=== PATIENT | male | born 1975 | race Caucasian/White ===

== ENCOUNTER 2018-05-10 12:07 | Emergency (ER) | payer OTHER ==
[~2018-05-10] VITALS: Ht 190.5 cm; Wt 118.7 kg
[2018-05-10 12:49] VITALS: BP 106/74
[2018-05-10] MEDS ORDERED: APIXABAN 5 MG TABLET PO ONE (13:04)
[2018-05-10] MEDS ORDERED: APIXABAN 5 MG TABLET ONE (13:12)
[2018-05-10] MEDS ORDERED: PROPOFOL 10 MG/ML, 20ML ONE (13:14)
[2018-05-10] MEDS ORDERED: PROPOFOL 10 MG/ML, 20ML IVPush ONE (13:30)
== END 2018-05-10 15:18 | disposition home or self-care (01) ==
LOC: ED 14:55
DX: I48.0 Paroxysmal atrial fibrillation (principal)
CPT/HCPCS: 92960; 93005; 99152

== ENCOUNTER 2018-07-26 19:15 | Emergency (ER) | payer OTHER ==
[~2018-07-26] VITALS: Ht 190.5 cm; Wt 120.0 kg
[2018-07-26 19:56] LABS: BASOPHILS # (AUTO) 0.04 x10^3/uL (0-0.1); BASOPHILS % (AUTO) 1 % (0-1); EOSINOPHILS # (AUTO) 0.14 x10^3/uL (0-0.4); EOSINOPHILS % (AUTO) 2 % (1-7); LYMPHOCYTES # (AUTO) 3.93 x10^3/uL (1-3.4); LYMPHOCYTES % (AUTO) 47 % (22-44); MD NO; MEAN CORPUSCULAR HEMOGLOBIN 30.1 pg (27.5-34.5); MEAN CORPUSCULAR HGB CONC 34.6 g/dL (33.2-36.2); MEAN CORPUSCULAR VOLUME 87.1 fL (81-97); MEAN PLATELET VOLUME 7.4 fL (7.4-10.4); MONOCYTES # (AUTO) 0.75 x10^3/uL (0.2-0.8); MONOCYTES % (AUTO) 9 % (2-9); NEUTROPHILS # (AUTO) 3.56 x10^3/uL (1.8-6.8); NEUTROPHILS % (AUTO) 42 % (42-75); PLATELET COUNT 270 x10^3/uL (130-400); RED BLOOD COUNT 5.93 x10^6/uL (4.38-5.82); RED CELL DISTRIBUTION WIDTH 14.1 % (9.4-14.8)
[2018-07-26] MEDS ORDERED: OMEP-110 PO (19:57)
[2018-07-26] MEDS ORDERED: ANDROGEL (19:57)
[2018-07-26] MEDS ORDERED: METO25TA35 PO (19:57)
[2018-07-26] MEDS ORDERED: CELE200C PO (19:57)
[2018-07-26] MEDS ORDERED: APIX5TAB PO (19:57)
[2018-07-26] MEDS ORDERED: AMITRIPTYLINE (19:57)
[2018-07-26] MEDS ORDERED: OXYC-295 PO (19:57)
[2018-07-26 20:06] LABS: INTERNATIONAL NORMALIZED RATIO 0.96 (0.93-1.1); PROTHROMBIN TIME 9.9 Seconds (9.6-11.5)
[2018-07-26 20:09] LABS: ANION GAP 5 mmol/L (5-15); CALCIUM 8.9 mg/dL (8.5-10.1); CHLORIDE 109 mmol/L (98-107)
[2018-07-26 20:14] LABS: TROPONIN I < 0.015 ng/mL (0.000-0.045)
[2018-07-26] MEDS ORDERED: ETOMIDATE 20 MG/10 ML ONE (20:37)
[2018-07-26] MEDS ORDERED: FENTANYL PF 100 MCG/2ML ONE (20:37)
[2018-07-26] MEDS ORDERED: ETOMIDATE 40 MG/20 ML IVPush ONE (21:00)
[2018-07-26] MEDS ORDERED: FENTANYL PF 100 MCG/2ML IVPush ONE ×2 (21:00)
[2018-07-26 21:55] VITALS: BP 125/87
== END 2018-07-26 22:14 ==
LOC: ED 20:20
DX: I48.0 Paroxysmal atrial fibrillation (principal)
CPT/HCPCS: 36415; 71045; 80048; 82040; 84484; 85025; 85610; 85730; 92960; 93005; 99285; J3010

== ENCOUNTER 2018-07-30 12:17 | Day surgery (SDC) | payer OTHER ==
[~2018-07-30] VITALS: Ht 190.5 cm; Wt 120.5 kg
[~2018-07-30 12:17] MED LIST: AMITRIPTYLINE; ANDROGEL; APIX5TAB PO; CELE200C PO; METO25TA35 PO; OMEP-110 PO; OXYC-295 PO
[2018-07-30 12:42] VITALS: BP 128/80
[2018-07-30] MEDS ORDERED: PROPOFOL 10 MG/ML, 20ML ONE (12:56)
[2018-07-30] MEDS ORDERED: SODIUM CHLORIDE FLUSH 10ML SYR IVF SCH (21:00)
== END 2018-07-30 14:48 | disposition home or self-care (01) ==
LOC: CACL 12:17
PROVIDERS: ATTEND Internal Medicine Cardiovascular Disease
DX: I48.0 Paroxysmal atrial fibrillation (principal); K21.9 Gastro-esophageal reflux disease without esophagitis; I10 Essential (primary) hypertension; G47.33 Obstructive sleep apnea (adult) (pediatric); Z79.82 Long term (current) use of aspirin
CPT/HCPCS: 92960; 93005; J2704

== ENCOUNTER → 2018-08-09 | Outpatient (CLI) | payer OTHER | END | disposition home or self-care (01) | LOC: CVU 10:26 | PROVIDERS: ATTEND Internal Medicine Cardiovascular Disease | DX: I48.0 Paroxysmal atrial fibrillation (principal); I10 Essential (primary) hypertension; Z87.890 Personal history of sex reassignment | CPT/HCPCS: 93306 ==

== ENCOUNTER 2020-11-22 23:16 | Emergency (ER) | payer OTHER ==
[~2020-11-22] VITALS: Ht 190.5 cm; Wt 124.0 kg
[2020-11-23] LABS: BASOPHILS % (AUTO) 1 % (0-1); EOSINOPHILS % (AUTO) 1 % (1-7); LYMPHOCYTES % (AUTO) 44 % (22-44); MEAN CORPUSCULAR HEMOGLOBIN 29.4 pg (27.5-34.5); MEAN CORPUSCULAR HGB CONC 34.4 g/dL (33.2-36.2); MEAN PLATELET VOLUME 7.3 fL (7.4-10.4); MONOCYTES % (AUTO) 9 % (2-9); NEUTROPHILS % (AUTO) 45 % (42-75); PLATELET COUNT 266 x10^3/uL (130-400); RED BLOOD COUNT 5.84 x10^6/uL (4.38-5.82); RED CELL DISTRIBUTION WIDTH 14.5 % (9.4-14.8)
[2020-11-23 00:01] LABS: MD NO
[2020-11-23 00:11] LABS: ANION GAP 3 mmol/L (5-15); CALCIUM 9.1 mg/dL (8.5-10.1); CHLORIDE 105 mmol/L (98-107); CREATININE 1.23 mg/dL (0.7-1.3)
[2020-11-23 00:15] LABS: TROPONIN I < 0.015 ng/mL (0.000-0.045)
[2020-11-23] MEDS ORDERED: PROPOFOL 10 MG/ML, 20ML ONE (00:26)
[2020-11-23] MEDS ORDERED: PROPOFOL 10 MG/ML, 20ML IVPush ONE (00:30)
[2020-11-23 00:50] VITALS: BP 106/79
[2020-11-23] MEDS ORDERED: RIVAROXABAN 20 MG TABLET ONE (00:54)
[2020-11-23] MEDS ORDERED: RIVAROXABAN 20 MG TABLET PO ONE (01:00)
== END 2020-11-23 01:04 | disposition home or self-care (01) ==
LOC: ED 11-23 00:30
DX: I48.0 Paroxysmal atrial fibrillation (principal); R06.02 Shortness of breath; R00.2 Palpitations; R42 Dizziness and giddiness; R07.89 Other chest pain
CPT/HCPCS: 36415; 71045; 80048; 82040; 83735; 84484; 85025; 93005; 99285

== ENCOUNTER 2020-11-29 06:52 | Day surgery (SDC) | payer OTHER ==
[~2020-11-29] VITALS: Ht 190.5 cm; Wt 121.0 kg
[2020-11-29] MEDS ORDERED: SODIUM CHLORIDE 0.9% 1,000 ML IV ONE (07:30)
[2020-11-29] MEDS ORDERED: NALOXONE 0.4 MG/ML, 1ML IVPush PRN ×2 (07:30)
[2020-11-29] MEDS ORDERED: RIVA20TA PO (07:45)
[2020-11-29 07:46] VITALS: BP 107/76
[2020-11-29 07:59] LABS: ANION GAP 6 mmol/L (5-15); CALCIUM 8.8 mg/dL (8.5-10.1); CHLORIDE 110 mmol/L (98-107); CREATININE 1.08 mg/dL (0.7-1.3)
[2020-11-29] MEDS ORDERED: SODIUM CHLORIDE FLUSH 10ML SYR IVF SCH (09:00)
[2020-11-29] MEDS ORDERED: PROPOFOL 10 MG/ML, 50ML ONE (09:07)
== END 2020-11-29 10:28 | disposition home or self-care (01) ==
LOC: CACL 06:52
PROVIDERS: ATTEND Internal Medicine Cardiovascular Disease
DX: I48.0 Paroxysmal atrial fibrillation (principal); I34.0 Nonrheumatic mitral (valve) insufficiency; I10 Essential (primary) hypertension; Z20.828 Contact with and (suspected) exposure to other viral communicable diseases; Z79.01 Long term (current) use of anticoagulants; Z79.899 Other long term (current) drug therapy
CPT/HCPCS: 36415; 80048; 87635; 92960; 93005; 93312; 93321; 93325; J2704

== ENCOUNTER 2020-12-27 07:51 | Emergency (ER) | payer OTHER ==
[~2020-12-27] VITALS: Ht 190.5 cm; Wt 127.3 kg
[~2020-12-27 07:51] MED LIST changes: +RIVA20TA PO
--- NOTE | 2020-12-27 08:10 | NUR ---
PT HAS CO CP AND PALPIATIONS AND SOB. RECENT AFIB W CARDIVERSION. PT DENIES N/V OR RESP SYMPTOMS. PAIN CENTER OF CHEST, DOES NOT RADIATE. SYMPTOMS STARTED THIS AM. MD LOPEZ AT BEDSIDE. MATCH MARKER IN PLACE
[2020-12-27] MEDS ORDERED: ASPIRIN 81 MG TABLET CHEW ONE (08:15)
[2020-12-27] MEDS ORDERED: NITROGLYCERIN SINGLE TAB 0.4 MG SL ONE (08:15)
[2020-12-27] MEDS ORDERED: ASPIRIN 81 MG TABLET CHEW PO ONE (08:30)
[2020-12-27] MEDS ORDERED: NITROGLYCERIN SINGLE TAB 0.4 MG SL PRN (08:30)
[2020-12-27] MEDS ORDERED: SODIUM CHLORIDE FLUSH 10ML SYR IVF ONE (08:30)
[2020-12-27 08:54] LABS: BASOPHILS % (AUTO) 1 % (0-1); EOSINOPHILS % (AUTO) 1 % (1-7); LYMPHOCYTES % (AUTO) 29 % (22-44); MEAN CORPUSCULAR HEMOGLOBIN 28.4 pg (27.5-34.5); MEAN CORPUSCULAR HGB CONC 33.7 g/dL (33.2-36.2); MEAN PLATELET VOLUME 7.1 fL (7.4-10.4); MONOCYTES % (AUTO) 9 % (2-9); NEUTROPHILS % (AUTO) 60 % (42-75); PLATELET COUNT 242 x10^3/uL (130-400); RED BLOOD COUNT 5.85 x10^6/uL (4.38-5.82); RED CELL DISTRIBUTION WIDTH 14.7 % (9.4-14.8)
[2020-12-27 08:59] LABS: MD NO
[2020-12-27 09:05] LABS: ALANINE AMINOTRANSFERASE 142 U/L (12-78); ALBUMIN 3.9 g/dL (3.4-5.0); CALCIUM 8.7 mg/dL (8.5-10.1); CREATININE 0.94 mg/dL (0.7-1.3); INTERNATIONAL NORMALIZED RATIO 1.03 (0.93-1.1)
[2020-12-27 09:10] LABS: ALKALINE PHOSPHATASE 42 U/L (45-117); BILIRUBIN,TOTAL 0.3 mg/dL (0.2-1.0); TOTAL PROTEIN 7.2 g/dL (6.4-8.2); TROPONIN I < 0.015 ng/mL (0.000-0.045)
[2020-12-27 09:24] LABS: ANION GAP 4 mmol/L (5-15); CHLORIDE 108 mmol/L (98-107)
--- NOTE | 2020-12-27 09:55 | NUR ---
PT RESTING, STATES CHEST PAIN IS PRESENT BUT DECREASED. SOB IS BETTER. VSS
[2020-12-27] MEDS ORDERED: MAALOX/HYOSCYAMINE/LIDOCAINE 45 ML BTL PO ONE (10:00)
[2020-12-27] MEDS ORDERED: MAALOX/HYOSCYAMINE/LIDOCAINE 45 ML BTL ONE (10:03)
[2020-12-27 10:47] LABS: TROPONIN I < 0.015 ng/mL (0.000-0.045)
--- NOTE | 2020-12-27 11:42 | NUR ---
Patient/Caregiver given discharge instructions and they have confirmed that they understand the instructions. Patient ambulatory with steady gait.
--- NOTE | 2020-12-27 11:42 | NUR ---
Patient/Caregiver given discharge instructions and they have confirmed that they understand the instructions. Patient ambulatory with steady gait.
[2020-12-27 11:45] VITALS: BP 145/88
== END 2020-12-27 11:46 | disposition home or self-care (01) ==
LOC: ED 08:54
DX: R07.89 Other chest pain (principal); R06.02 Shortness of breath; I48.91 Unspecified atrial fibrillation
CPT/HCPCS: 36415; 71045; 80053; 83880; 84484; 85025; 85610; 85730; 93005; 99285

== ENCOUNTER 2021-01-07 19:06 | Emergency (ER) | payer OTHER ==
[~2021-01-07] VITALS: Ht 198.1 cm; Wt 126.6 kg
--- NOTE | 2021-01-07 19:40 | NUR ---
Rate controlled at triage, a fib 80. Takes xarelto and metoprolol took extra metoprolol when device at home alerted him he was in a fib. Was cardioverted last week successfully. Has f/u with cards next week. Takes xarelto but has missed x2 doses in past few days. No cp, no sob.
--- NOTE | 2021-01-07 20:31 | NUR ---
PT RESTING COMFORTABLY. SO AT BEDSIDE. EDP IN .
[2021-01-07 20:54] LABS: BASOPHILS % (AUTO) 1 % (0-1); EOSINOPHILS % (AUTO) 2 % (1-7); LYMPHOCYTES % (AUTO) 46 % (22-44); MEAN CORPUSCULAR HEMOGLOBIN 28.8 pg (27.5-34.5); MEAN CORPUSCULAR HGB CONC 34.6 g/dL (33.2-36.2); MEAN PLATELET VOLUME 7.2 fL (7.4-10.4); MONOCYTES % (AUTO) 9 % (2-9); NEUTROPHILS % (AUTO) 43 % (42-75); PLATELET COUNT 244 x10^3/uL (130-400); RED BLOOD COUNT 5.76 x10^6/uL (4.38-5.82); RED CELL DISTRIBUTION WIDTH 14.5 % (9.4-14.8)
--- NOTE | 2021-01-07 20:54 | NUR ---
BEDSIDE RPT TO LAURA ALVES.
[2021-01-07] MEDS ORDERED: SODIUM CHLORIDE FLUSH 10ML SYR IVF ONE (21:00)
--- NOTE | 2021-01-07 21:00 | NUR ---
PT RESTING IN BED, AT BEDSIDE, NO COMPLAINTS AT THIS TIME, VSS
[2021-01-07 21:01] VITALS: BP 115/72
[2021-01-07 21:03] LABS: ALBUMIN 3.8 g/dL (3.4-5.0); ANION GAP 7 mmol/L (5-15); CALCIUM 8.5 mg/dL (8.5-10.1); CHLORIDE 111 mmol/L (98-107); CREATININE 0.92 mg/dL (0.7-1.3)
[2021-01-07 21:07] LABS: MD NO
== END 2021-01-07 21:48 | disposition home or self-care (01) ==
LOC: ED 21:00
DX: I48.0 Paroxysmal atrial fibrillation (principal); R00.2 Palpitations; Z72.9 Problem related to lifestyle, unspecified
CPT/HCPCS: 36415; 71045; 80048; 82040; 83735; 83880; 85025; 93005; 99285

== ENCOUNTER 2021-04-18 10:29 | Emergency (ER) | payer OTHER ==
[~2021-04-18] VITALS: Ht 190.5 cm; Wt 118.9 kg
[2021-04-18] MEDS ORDERED: SODIUM CHLORIDE FLUSH 10ML SYR IVF ONE (11:00)
[2021-04-18 11:09] VITALS: BP 119/85
[2021-04-18] MEDS ORDERED: PROPOFOL 10 MG/ML, 20ML ONE (11:11)
[2021-04-18] MEDS ORDERED: ADENOSINE 6 MG/2 ML ONE (11:12)
[2021-04-18 11:26] LABS: BASOPHILS % (AUTO) 1 % (0-1); EOSINOPHILS % (AUTO) 1 % (1-7); LYMPHOCYTES % (AUTO) 41 % (22-44); MEAN CORPUSCULAR HGB CONC 34.5 g/dL (33.2-36.2); MEAN PLATELET VOLUME 7.8 fL (7.4-10.4); MONOCYTES % (AUTO) 11 % (2-9); NEUTROPHILS % (AUTO) 47 % (42-75); PLATELET COUNT 251 x10^3/uL (130-400); RED BLOOD COUNT 6.74 x10^6/uL (4.38-5.82); RED CELL DISTRIBUTION WIDTH 14.3 % (9.4-14.8)
[2021-04-18 11:35] LABS: ANION GAP 5 mmol/L (5-15); CALCIUM 9.2 mg/dL (8.5-10.1); CHLORIDE 109 mmol/L (98-107); CREATININE 0.91 mg/dL (0.7-1.3); T4 (THYROXINE) 6.6 mcg/dL (4.5-12.1)
--- NOTE | 2021-04-18 11:35 | NUR ---
SYNCHRONIZED ELECTRICAL CARDIOVERSION WITH SEDATION STARTING AT 1127. PT CURRENTLY RECOVERING. PLEASE SEE PACKET FOR VS.
[2021-04-18 11:39] LABS: TROPONIN I < 0.015 ng/mL (0.000-0.045)
[2021-04-18 11:48] LABS: MD NO
== END 2021-04-18 13:09 | disposition home or self-care (01) ==
LOC: ED 12:00
DX: I48.0 Paroxysmal atrial fibrillation (principal); R07.89 Other chest pain; R94.31 Abnormal electrocardiogram [ECG] [EKG]
CPT/HCPCS: 36415; 71045; 80048; 82040; 83880; 84436; 84443; 84484; 85025; 92960; 93005; 99285

== ENCOUNTER 2021-04-19 19:24 | Emergency (ER) | payer OTHER ==
[~2021-04-19] VITALS: Ht 190.5 cm; Wt 119.0 kg
[2021-04-19 19:36] VITALS: BP 130/88
[2021-04-19 20:00] LABS: MICROSCOPIC AUTO
[2021-04-19] MEDS ORDERED: KETOROLAC 30 MG/1 ML ONE (23:24)
[2021-04-19] MEDS ORDERED: HYDROmorphone 1 MG/ML, 1ML INJ ONE (23:24)
[2021-04-19] MEDS ORDERED: METHOCARBAMOL 750 MG TABLET ONE (23:24)
[2021-04-19] MEDS ORDERED: HYDROmorphone 2 MG/ML, 1ML IVPush PRN (23:30)
[2021-04-19] MEDS ORDERED: KETOROLAC 30 MG/1 ML IVPush ONE (23:30)
[2021-04-19] MEDS ORDERED: METHOCARBAMOL 750 MG TABLET PO ONE (23:30)
--- NOTE | 2021-04-19 23:46 | NUR ---
IV STARTED AND PT TO GO FOR MRI. RN LEFT TO GET MEDICATIONS AND MRI SCREENING FORM TO GO OVER WITH PT PT HAS RODS AND SCREWS IN HIS BACK. RN RETURNED TO ROOM AND PT WAS GONE. PT TAKEN TO MRI WITH INJECTOR ASSEMBLER BEFORE SCREENING FORM WAS COMPLETED AND BEFORE PT WAS MEDICATED FOR PAIN. RN CALLED MRI AND TECH STATED THAT SHE SCREENED THE PT HERSELF. RN TO MRI TO MEDICATE PT FOR PAIN.
== END 2021-04-20 01:40 | disposition home or self-care (01) ==
LOC: ED 22:16
DX: M54.16 Radiculopathy, lumbar region (principal); R33.9 Retention of urine, unspecified; I48.91 Unspecified atrial fibrillation
CPT/HCPCS: 72148; 81001; 96374; 96375; 99284; J1170; J1885

== ENCOUNTER 2021-04-23 11:54 | Emergency (ER) | payer OTHER ==
[~2021-04-23] VITALS: Ht 190.5 cm; Wt 116.0 kg
[2021-04-23 12:36] LABS: ALBUMIN 4.1 g/dL (3.4-5.0); ANION GAP 5 mmol/L (5-15); CHLORIDE 110 mmol/L (98-107); CREATININE 1.12 mg/dL (0.7-1.3)
[2021-04-23 12:39] LABS: BASOPHILS % (AUTO) 1 % (0-1); EOSINOPHILS % (AUTO) 1 % (1-7); LYMPHOCYTES % (AUTO) 31 % (22-44); MEAN CORPUSCULAR HGB CONC 34.7 g/dL (33.2-36.2); MEAN PLATELET VOLUME 7.4 fL (7.4-10.4); MONOCYTES % (AUTO) 6 % (2-9); NEUTROPHILS % (AUTO) 61 % (42-75); PLATELET COUNT 277 x10^3/uL (130-400); RED BLOOD COUNT 7.11 x10^6/uL (4.38-5.82); RED CELL DISTRIBUTION WIDTH 14.6 % (9.4-14.8)
[2021-04-23 12:40] LABS: MD NO
[2021-04-23] MEDS ORDERED: PROCAINAMIDE HCL 500 MG/ML, 2ML IV ONE (14:00)
[2021-04-23] MEDS ORDERED: DEXTROSE 5% IV ONE (14:30)
[2021-04-23] MEDS ORDERED: PROCAINAMIDE HCL IV ONE (14:30)
[2021-04-23] MEDS ORDERED: OXYcodone/APAP 7.5/325MG TABLET PO ONE (15:00)
[2021-04-23] MEDS ORDERED: OXYcodone/APAP 7.5/325MG TABLET ONE (15:25)
[2021-04-23] MEDS ORDERED: PROPOFOL 10 MG/ML, 20ML ONE (16:10)
--- NOTE | 2021-04-23 16:19 | NUR ---
procedural sedation set up in room. suction bvm, and crash cart in room and pads placed. etco2 monitoring in placed. consent signed and at bedside.
--- NOTE | 2021-04-23 16:25 | NUR ---
timeout performed refer to vs print out and procedural sedation packet.
[2021-04-23] MEDS ORDERED: PROPOFOL 10 MG/ML, 20ML IVPush ONE (16:30)
[2021-04-23] MEDS ORDERED: MORPHINE SULFATE 4 MG/ML, 1ML ONE (16:56)
[2021-04-23] MEDS ORDERED: ONDANSETRON 2MG/ML, 2ML ONE (16:56)
[2021-04-23] MEDS ORDERED: ONDANSETRON 2MG/ML, 2ML IVPush ONE (17:00)
[2021-04-23] MEDS ORDERED: MORPHINE SULFATE 4 MG/ML, 1ML IVPush ONE (17:00)
[2021-04-23 17:29] VITALS: BP 123/75
== END 2021-04-23 17:31 | disposition home or self-care (01) ==
LOC: ED 12:31
DX: I48.0 Paroxysmal atrial fibrillation (principal); R07.89 Other chest pain
CPT/HCPCS: 36415; 71045; 80048; 82040; 85025; 92960; 93005; 96365; 96375; 99152; 99285; J2270; J2405; J2690; J2704; J7060

== ENCOUNTER 2021-05-24 06:58 | Emergency (ER) | payer OTHER ==
[~2021-05-24] VITALS: Ht 190.5 cm; Wt 121.4 kg
--- NOTE | 2021-05-24 07:13 | NUR ---
PT AMBULATES TO ROOM WITH STEADY GAIT. PT CHANGED INTO GOWN AND ATTACHED TO ALL VS AND CARDIAC MONITORS AT THIS TIME.
--- NOTE | 2021-05-24 07:38 | NUR ---
PIV ACCESS ESTABLISHED AT THIS TIME. DR LOPEZ AT BS WITH PT.
[2021-05-24] MEDS ORDERED: SODIUM CHLORIDE 0.9% 1,000ML IVBOLUS ONE (08:00)
[2021-05-24] MEDS ORDERED: PROPOFOL 10 MG/ML, 20ML ONE (08:06)
--- NOTE | 2021-05-24 08:29 | NUR ---
[facility] PT ATTACHED TO ALL VS AND CARDIAC MONITORS. SUCTION SETUP. MEDICATIONS AT BS FOR DR. LOPEZ. CONSENT OBTAINED FROM PT AND SIGNED CONSENT FORM PLACED WITH PT CHART AT THIS TIME.
--- NOTE | 2021-05-24 08:41 | NUR ---
DR LOPEZ AT BS TO BEGIN PROCEDURAL SEDATION AT THIS TIME. TIME OUT X 2 PERFORMED AT THIS TIME. PT CONSENTS TO BEING READY TO BEGIN PROCEDURE.
--- NOTE | 2021-05-24 08:46 | NUR ---
PT TOLERATED SUCCESSFUL CARDIOVERSION WITH A TOTAL OF 100 MG PROPOFOL AND 120 J SYNCHED ON DEFIB PADS.
[2021-05-24] MEDS ORDERED: PROPOFOL 10 MG/ML, 20ML IVPush ONE (09:00)
--- NOTE | 2021-05-24 09:15 | NUR ---
PT MOSTLY AWAKE AT THIS TIME. PT VSS. PT ABLE TO TALK IN COMPLETE SENTENCES, AAO X 4. PT HAS CALL LIGHT WITHIN REACH. THIS RN CONTINUES DIRECT OBSERVATION/MONITORING OF PT.
--- NOTE | 2021-05-24 09:49 | NUR ---
PT FULLY AWAKE WITH STABLE VS AND EXPRESSES INTEREST IN BEING D/C. PT EDUCATED ON NEED FOR HOUR + RECOVERY POST PROCEDURAL SEDATION AND VERBALIZES UNDERSTANDING. DR LOPEZ NOTIFIED THAT PT IS AWAKE AND VS ALL AT BASELINE. PT CONTINUES TO SHOW SINUS BRADYCARDIA/SINUS RHYTHM ON THE MONITOR.
--- NOTE | 2021-05-24 10:08 | NUR ---
PT D/C WITH D/C SUMMARY AND WORK NOTE. PT DENIES ANY NEEDS PERTAINING TO THIS VISIT. PT VSS AND UPDDATED IN EMR. PT AMBULATES TO REGISTRATION DESK WITH STEADY GAIT FOR D/C HOME WITH SPOUSE.
[2021-05-24 10:09] VITALS: BP 127/80
== END 2021-05-24 10:12 ==
LOC: ED 07:07
DX: I48.0 Paroxysmal atrial fibrillation (principal)
CPT/HCPCS: 92960; 93005; 96360; 99285; J2704; J7030

== ENCOUNTER 2021-05-29 18:11 | Emergency (ER) | payer OTHER ==
[~2021-05-29] VITALS: Ht 190.5 cm; Wt 120.6 kg
--- NOTE | 2021-05-29 18:30 | NUR ---
PATIENT WALKED BACK FROM TRIAGE WITH CHIEF C/O "I'M IN A-FIB." PER PATIENT AROUND 1715 HE FELT HIS "HEART FLOPPING AROUND." PATIENT HAS DEVICE/ KARDIA THAT NOTIFIES HIM WHEN HE IS IN A-FIB. PATIENT DENIES CHEST PAIN OR SOB. CONNECTED TO MONITOR, HR 110-120'S, A-FIB NOTED ON MONITOR, OTHER VSS, NADN, CALL LIGHT WITHIN REACH, FAMILY MEMBER AT BEDSIDE.
--- NOTE | 2021-05-29 18:44 | NUR ---
REPORT RECEIVED FROM CONCHIS SANCHEZ
--- NOTE | 2021-05-29 18:44 | NUR ---
REPORT TO LAURA ZHANG FOR TRANSFER OF PATIENT CARE.
[2021-05-29 18:53] VITALS: BP 112/80
--- NOTE | 2021-05-29 18:56 | NUR ---
ERP AT BEDSIDE
[2021-05-29] MEDS ORDERED: PROPOFOL 10 MG/ML, 20ML IVPush ONE (19:00)
[2021-05-29 19:19] LABS: BASOPHILS % (AUTO) 1 % (0-1); EOSINOPHILS % (AUTO) 1 % (1-7); LYMPHOCYTES % (AUTO) 32 % (22-44); MEAN CORPUSCULAR HEMOGLOBIN 29.3 pg (27.5-34.5); MEAN CORPUSCULAR HGB CONC 34.6 g/dL (33.2-36.2); MEAN PLATELET VOLUME 7.5 fL (7.4-10.4); MONOCYTES % (AUTO) 8 % (2-9); NEUTROPHILS % (AUTO) 58 % (42-75); PLATELET COUNT 269 x10^3/uL (130-400); RED BLOOD COUNT 6.07 x10^6/uL (4.38-5.82); RED CELL DISTRIBUTION WIDTH 15.5 % (9.4-14.8)
[2021-05-29 19:27] LABS: ANION GAP 7 mmol/L (5-15); CALCIUM 8.8 mg/dL (8.5-10.1); CHLORIDE 108 mmol/L (98-107); CREATININE 0.94 mg/dL (0.7-1.3)
[2021-05-29] MEDS ORDERED: PROPOFOL 10 MG/ML, 20ML ONE (19:48)
--- NOTE | 2021-05-29 19:59 | NUR ---
REPORT TO KENNY SANCHEZ.
--- NOTE | 2021-05-29 20:00 | NUR ---
REPORT RECIEVED FROM VICENTE, ASSUMED CARE OF PT FOR CARDIOVERSION.
--- NOTE | 2021-05-29 20:52 | NUR ---
Patient given discharge instructions and they have confirmed that they understand the instructions. Patient ambulatory with steady gait. NAD, all questions answered appropriately, denies additional needs at this time. No personal belongings left in room after discharge.
== END 2021-05-29 20:54 | disposition home or self-care (01) ==
LOC: ED 20:05
DX: I48.0 Paroxysmal atrial fibrillation (principal); R00.2 Palpitations
CPT/HCPCS: 36415; 80048; 82040; 83735; 85025; 92960; 93005

== ENCOUNTER 2021-05-30 10:48 | Emergency (ER) | payer OTHER ==
[~2021-05-30] VITALS: Ht 190.5 cm; Wt 120.7 kg
--- NOTE | 2021-05-30 11:04 | NUR ---
PT AMBULATORY TO ROOM FROM TRIAGE. PT STATES HE IS IN A-FIB. TOOK METOPROLOL 50MG LAST NIGHT AND 50MG THIS AM. PT STATES HES ANXIOUS WITH SOB. DENIES CP. PT CONNECTED TO ALL MONITORS. AT BS. CALL LIGHT WITHIN REACH.
--- NOTE | 2021-05-30 11:05 | NUR ---
ERP AT BS
[2021-05-30] MEDS ORDERED: SODIUM CHLORIDE FLUSH 10ML SYR IVF ONE (11:30)
[2021-05-30] MEDS ORDERED: PROPOFOL 10 MG/ML, 20ML IVPush ONE (11:30)
--- NOTE | 2021-05-30 11:48 | NUR ---
PT INFORMED ON PROCEDURE, EQUIPTMENT IN PLACE, PAPERWORK SIGNED. ERP AT BS FOR PROCEDURAL SEDATION FOR CARDIOVERSION.
--- NOTE | 2021-05-30 11:55 | NUR ---
PT TOLERATED PROCEDURE WELL. PT GIVEN 100MG PROPOFOL BY ERP, SHOCKED AT 120 RICCI @ 1154. AT BS.
[2021-05-30 12:10] VITALS: BP 101/58
--- NOTE | 2021-05-30 12:19 | NUR ---
PT BACK TO BASELINE AFTER PROCEDURE, SPO2 95% RA. PT A&OX4. DENIES ANY PAIN.
--- NOTE | 2021-05-30 12:29 | NUR ---
Patient given discharge instructions and they have confirmed that they understand the instructions. Patient ambulatory with steady gait.
== END 2021-05-30 12:33 ==
LOC: ED 10:56
DX: I48.0 Paroxysmal atrial fibrillation (principal); Z79.01 Long term (current) use of anticoagulants; R00.1 Bradycardia, unspecified
CPT/HCPCS: 92960; 93005

== ENCOUNTER 2021-06-04 17:09 | Emergency (ER) | payer OTHER ==
[~2021-06-04] VITALS: Ht 205.7 cm; Wt 119.0 kg
--- NOTE | 2021-06-04 17:30 | NUR ---
late entry for 1730: pt presents to ED with c/o palpitations starting this afternoon. pt also notes some associated sob, denies chest pain. pt a&o, resps even and unlabored, nadn. pt notes he has been compliant with his xaralto rx, prescribed for hx afib. all monitors in place . ekg taken in triage. awaiting md and orders.
[2021-06-04 17:56] LABS: BASOPHILS % (AUTO) 1 % (0-1); EOSINOPHILS % (AUTO) 1 % (1-7); LYMPHOCYTES % (AUTO) 41 % (22-44); MEAN CORPUSCULAR HEMOGLOBIN 29.6 pg (27.5-34.5); MEAN CORPUSCULAR HGB CONC 34.7 g/dL (33.2-36.2); MEAN PLATELET VOLUME 7.3 fL (7.4-10.4); MONOCYTES % (AUTO) 13 % (2-9); NEUTROPHILS % (AUTO) 45 % (42-75); PLATELET COUNT 210 x10^3/uL (130-400); RED BLOOD COUNT 6.56 x10^6/uL (4.38-5.82); RED CELL DISTRIBUTION WIDTH 15.9 % (9.4-14.8)
[2021-06-04 18:00] LABS: ANION GAP 3 mmol/L (5-15); CALCIUM 9.1 mg/dL (8.5-10.1); CHLORIDE 103 mmol/L (98-107); CREATININE 1.16 mg/dL (0.7-1.3)
[2021-06-04] MEDS ORDERED: PROPOFOL 10 MG/ML, 20ML IVPush ONE (18:00)
[2021-06-04] MEDS ORDERED: ONDANSETRON 2MG/ML, 2ML IVPush ONE (18:00)
--- NOTE | 2021-06-04 18:30 | NUR ---
pt seen and examined by eden tirado, labs drawn, pt to have cardioversion, pt consented by MD Tirado. pt agreeable to poc. pt a&o, resps even and unlabored, afib rate 120s with no ectopy on threat monitoring analyst.
[2021-06-04] MEDS ORDERED: PROPOFOL 10 MG/ML, 20ML ONE (19:11)
[2021-06-04] MEDS ORDERED: ONDANSETRON 2MG/ML, 2ML ONE (19:17)
--- NOTE | 2021-06-04 19:42 | NUR ---
cardioversion performed by DILAN Miller as follows: 1928: time out completed 1929: 100mg propofol administered by DILAN iMller (bp 111/82, HR 121, RR 15, spo2 95% on room air, etco2 27) 1931: synchronized cardioversion completed with shock delivered at 120J. (HR 74, RR 21, bp 109/67, spo2 89%, etco2 26). oxygen applied at 4L/min. pt converted to normal sinus rhythm.
--- NOTE | 2021-06-04 19:43 | NUR ---
cardioversion complete, see paper charting for procedural documentation. all monitors in place, including end tidal co2. etco2 22-26 at this time. pt tolerating room air with spo2 94%. pt is drowsy, but oriented x 4. resps even and unlabored. nsr on lunchroom monitor, rate 80s with no ectopy. pt denies pain. pt to be discharged once monitoring period over.
--- NOTE | 2021-06-04 20:06 | NUR ---
pt awake, alert and oriented. resps even and unlabored. nsr on quality assurance monitor final with no ectopy rate 70s. etco2 24. edt at bedside for ekg.
[2021-06-04 20:47] VITALS: BP 130/85
== END 2021-06-04 20:50 | disposition home or self-care (01) ==
LOC: ED 18:13
DX: I48.0 Paroxysmal atrial fibrillation (principal)
CPT/HCPCS: 36415; 80048; 82040; 85025; 92960; 93005; 96374; 99285; J2405; J2704

== ENCOUNTER 2021-06-21 15:50 | Emergency (ER) | payer OTHER ==
[~2021-06-21] VITALS: Ht 190.5 cm; Wt 117.4 kg
[~2021-06-21 15:50] MED LIST changes: +AMOX500T PO; +DEXA4TAB66 PO; +SENN-99 PO; +[UNRECOGNIZED DRUG - CODE] TD
--- NOTE | 2021-06-21 16:22 | NUR ---
Pt to room from lobby at this time.
[2021-06-21] MEDS ORDERED: SODIUM CHLORIDE FLUSH 10ML SYR IVF ONE (16:30)
[2021-06-21 16:38] LABS: BASOPHILS % (AUTO) 2 % (0-1); EOSINOPHILS % (AUTO) 0 % (1-7); LYMPHOCYTES % (AUTO) 13 % (22-44); MEAN CORPUSCULAR HGB CONC 34.3 g/dL (33.2-36.2); MEAN PLATELET VOLUME 7.1 fL (7.4-10.4); MONOCYTES % (AUTO) 7 % (2-9); NEUTROPHILS % (AUTO) 78 % (42-75); PLATELET COUNT 586 x10^3/uL (130-400); RED BLOOD COUNT 5.75 x10^6/uL (4.38-5.82); RED CELL DISTRIBUTION WIDTH 15.7 % (9.4-14.8)
[2021-06-21 16:49] LABS: ALBUMIN 3.4 g/dL (3.4-5.0); ANION GAP 7 mmol/L (5-15); CHLORIDE 109 mmol/L (98-107)
[2021-06-21] MEDS ORDERED: DILTIAZEM 5 MG/ML, 5ML ONE (16:55)
[2021-06-21 17:00] LABS: ALANINE AMINOTRANSFERASE 74 U/L (12-78); ALKALINE PHOSPHATASE 55 U/L (45-117); BILIRUBIN,TOTAL 0.4 mg/dL (0.2-1.0); CREATININE 0.99 mg/dL (0.7-1.3); TOTAL PROTEIN 7.8 g/dL (6.4-8.2); TROPONIN I < 0.015 ng/mL (0.000-0.045)
[2021-06-21] MEDS ORDERED: DILTIAZEM 5 MG/ML, 5ML IVPush ONE (17:00)
[2021-06-21 17:01] VITALS: BP 104/67
--- NOTE | 2021-06-21 17:30 | NUR ---
task RN: assumed care of pt for cardioversion. report from Say SANCHEZ pt here for palpitations. +hx of mulitple cardioversions. pt denies CP, no SOB. denies nausea. SO at bedside. pt is diaphoretic tri-color form has been started. pt prepped for cardioversion. code cart at bedside. pt updated on POC. all questions answered.
[2021-06-21] MEDS ORDERED: PROPOFOL 10 MG/ML, 20ML ONE (17:34)
[2021-06-21] MEDS ORDERED: PROPOFOL 10 MG/ML, 20ML IVPush ONE (18:00)
== END 2021-06-21 18:41 | disposition home or self-care (01) ==
LOC: ED 18:30
DX: I48.0 Paroxysmal atrial fibrillation (principal); R00.0 Tachycardia, unspecified; R07.89 Other chest pain; R06.02 Shortness of breath
CPT/HCPCS: 36415; 71045; 80053; 83735; 84443; 84484; 85025; 92960; 93005; 96374; 99152; 99285

== ENCOUNTER 2021-07-03 09:29 | Emergency (ER) | payer OTHER ==
[~2021-07-03] VITALS: Ht 190.5 cm; Wt 121.5 kg
[2021-07-03] MEDS ORDERED: FENTANYL PF 100 MCG/2ML ONE (09:58)
[2021-07-03] MEDS ORDERED: ETOMIDATE 20 MG/10 ML ONE (09:58)
[2021-07-03] MEDS ORDERED: ETOMIDATE 20 MG/10 ML IVPush ONE (10:00)
--- NOTE | 2021-07-03 10:10 | NUR ---
IV started, pt shaved and placed on Zoll pads in preparation for cardioversion. Pt placed on ETCO2 NC with no O2 started, NS 1 liter at TKO started to IV site, full bedside monitoring as well as 4 lead EKG with Zoll monitor started. Meds desired by MD dictated and being obtained. Consent being read at sign by pt at this time and central station operator completed.
--- NOTE | 2021-07-03 10:20 | NUR ---
MD at bedside for procedure. See procedural flowsheet for all VS pre, during, and post.
[2021-07-03] MEDS ORDERED: ONDANSETRON 2MG/ML, 2ML ONE (10:27)
[2021-07-03] MEDS ORDERED: FENTANYL PF 100 MCG/2ML IVPush ONE (10:30)
--- NOTE | 2021-07-03 10:50 | NUR ---
Pt back to baseline, off O2, off ETCO2 monitoring, off Zoll with pads left in place. Awaiting D/C orders from MD. at bedside.
[2021-07-03] MEDS ORDERED: ONDANSETRON 2MG/ML, 2ML IVPush ONE (11:00)
[2021-07-03 11:59] VITALS: BP 102/69
== END 2021-07-03 12:02 | disposition home or self-care (01) ==
LOC: ED 10:22
DX: I48.91 Unspecified atrial fibrillation (principal); R94.31 Abnormal electrocardiogram [ECG] [EKG]
CPT/HCPCS: 92960; 93005; 96374; 99285; J2405; J3010

== ENCOUNTER 2021-07-08 05:43 | Emergency (ER) | payer OTHER ==
[~2021-07-08] VITALS: Ht 190.5 cm; Wt 121.9 kg
--- NOTE | 2021-07-08 05:51 | NUR ---
EKG DONE IN TRIAGE.
--- NOTE | 2021-07-08 06:11 | NUR ---
PT AMBULATED TO ROOM. PT REPROTS GOING INTO AFIB THIS MORNING AND TAKING HIS METOPROLOL WITH NO CONVERSION. PT HAS AN ABLATION APPOINTMENT 07/20. AVEL.
[2021-07-08] MEDS ORDERED: PROPOFOL 10 MG/ML, 20ML IVPush ONE (06:30)
--- NOTE | 2021-07-08 06:52 | NUR ---
CARE TRANSFERED. REPORT GIVEN TO LAURA REN
[2021-07-08] MEDS ORDERED: PROPOFOL 10 MG/ML, 20ML ONE (06:59)
--- NOTE | 2021-07-08 07:46 | NUR ---
0700: First contact with patient, room set up for procedural sedation. See procedural sedation packet. 0745: No complications; post EKG done: 0750: GCS 15 drinking water. Ready for discharge, back to preprocedural level.
[2021-07-08 07:50] VITALS: BP 110/68
== END 2021-07-08 08:12 | disposition home or self-care (01) ==
LOC: ED 06:30
DX: I48.20 Chronic atrial fibrillation, unspecified (principal)
CPT/HCPCS: 92960; 93005; 99285

== ENCOUNTER 2021-07-11 20:44 | Emergency (ER) | payer OTHER ==
[~2021-07-11] VITALS: Ht 190.5 cm; Wt 122.5 kg
[2021-07-11] MEDS ORDERED: PROPOFOL 10 MG/ML, 20ML ONE (21:22)
[2021-07-11] MEDS ORDERED: PROPOFOL 10 MG/ML, 20ML IVPush ONE (21:30)
--- NOTE | 2021-07-11 21:30 | NUR ---
PT CAME IN CO AFIB. SCHEDULED FOR ABLATION ON Jun. TAKES XARELTO. HAS BEEN CARDIOVERTED 10 TIMES. EKG SHOWS AFIB RVR. PT TO BE CARDIOVERTED. ALL SAFETY MEASURES IN PLACE. PT CONNECTED TO ALL MONITORING EQUIPMENT. SEE PRINTOUT FOR VITALS
[2021-07-11 22:37] VITALS: BP 112/87
== END 2021-07-11 22:46 | disposition home or self-care (01) ==
LOC: ED 22:00
DX: I48.0 Paroxysmal atrial fibrillation (principal)
CPT/HCPCS: 92960; 93005; 99152

== ENCOUNTER → 2021-07-18 | Outpatient (CLI) | payer OTHER | END | disposition home or self-care (01) | LOC: CFH 10:07 | PROVIDERS: ATTEND Internal Medicine Clinical Cardiac Electrophysiology | DX: I48.91 Unspecified atrial fibrillation (principal) | CPT/HCPCS: 75572 ==

== ENCOUNTER 2021-07-20 10:33 | Observation (INO) | payer OTHER ==
[~2021-07-20] VITALS: Ht 190.5 cm; Wt 132.0 kg
[~2021-07-20 10:33] MED LIST changes: +ACETAMINOPHEN 325 MG TABLET PO PRN; +EPHEDRINE 50 MG/ML, 1ML IVPush PRN; +FENTANYL PF 100 MCG/2ML IV PRN; +HYDROmorphone 1 MG/ML, 1ML INJ IVPush PRN; +LABETALOL 5MG/ML, 20ML IV PRN; +MEPERIDINE/PF 25MG/0.5ML IVPush PRN; +ONDANSETRON 2MG/ML, 2ML IVPush PRN; +OXYcodone 5 MG/5 ML ORAL.SOL UDC PO PRN; +PROMETHAZINE 25 MG/ML, 1ML IVPush PRN; +hydrALAzine 20 MG/ML, 1ML IV PRN
[2021-07-20] MEDS ORDERED: SODIUM CHLORIDE 0.9% 1,000 ML IV SCH (11:30)
[2021-07-20] MEDS ORDERED: CYCL10TA2 PO (11:43)
[2021-07-20] MEDS ORDERED: METO50TA82 PO (11:43)
[2021-07-20] MEDS ORDERED: TEST1.25 TP (11:43)
[2021-07-20] MEDS ORDERED: OXYC-295 PO (11:43)
[2021-07-20] MEDS ORDERED: MIDAZOLAM 1 MG/ML, 2ML ONE (11:52)
[2021-07-20] MEDS ORDERED: FENTANYL PF 100 MCG/2ML ONE ×2 (11:52→17:45)
[2021-07-20 11:54] VITALS: BP 143/102
[2021-07-20] MEDS ORDERED: LIDOCAINE 2%, 20ML ONE (11:58)
[2021-07-20 12:07] LABS: BASOPHILS % (AUTO) 1 % (0-1); EOSINOPHILS % (AUTO) 1 % (1-7); LYMPHOCYTES % (AUTO) 37 % (22-44); MEAN CORPUSCULAR HEMOGLOBIN 29.5 pg (27.5-34.5); MEAN CORPUSCULAR HGB CONC 34.5 g/dL (33.2-36.2); MEAN PLATELET VOLUME 7.2 fL (7.4-10.4); MONOCYTES % (AUTO) 7 % (2-9); NEUTROPHILS % (AUTO) 54 % (42-75); PLATELET COUNT 293 x10^3/uL (130-400); RED BLOOD COUNT 5.61 x10^6/uL (4.38-5.82); RED CELL DISTRIBUTION WIDTH 17.4 % (9.4-14.8)
[2021-07-20 12:17] LABS: INTERNATIONAL NORMALIZED RATIO 0.93 (0.93-1.1)
[2021-07-20 12:21] LABS: ALBUMIN 4.1 g/dL (3.4-5.0); ANION GAP 7 mmol/L (5-15); CALCIUM 9.9 mg/dL (8.5-10.1); CHLORIDE 108 mmol/L (98-107)
[2021-07-20 12:26] LABS: ALANINE AMINOTRANSFERASE 49 U/L (12-78); ALKALINE PHOSPHATASE 42 U/L (45-117); BILIRUBIN,TOTAL 0.7 mg/dL (0.2-1.0); CREATININE 0.83 mg/dL (0.7-1.3); TOTAL PROTEIN 7.9 g/dL (6.4-8.2)
[2021-07-20] MEDS ORDERED: SUCCINYLCHOLINE 20 MG/ML, 10ML ONE (12:53)
[2021-07-20] MEDS ORDERED: DEXAMETHASONE 4 MG/ML, 1ML ONE (12:53)
[2021-07-20] MEDS ORDERED: ROCURONIUM 10MG/ML,5ML ONE ×3 (12:53→14:44)
[2021-07-20] MEDS ORDERED: ONDANSETRON 2MG/ML, 2ML ONE (12:53)
[2021-07-20] MEDS ORDERED: PROPOFOL 10 MG/ML, 20ML ONE (12:53)
[2021-07-20] MEDS ORDERED: HEPARIN 1,000 UNITS/ML, 10ML ONE ×4 (12:53→15:13)
[2021-07-20] MEDS ORDERED: SUGAMMADEX 200 MG/2 ML IVPush ONE (13:30)
[2021-07-20] MEDS ORDERED: ISOPROTERENOL 0.2MG/ML, 5ML ONE (16:54)
[2021-07-20] MEDS ORDERED: ZOLPIDEM 5MG TABLET PO PRN (17:30)
[2021-07-20] MEDS ORDERED: ACETAMINOPHEN 325 MG TABLET PO PRN (17:30)
[2021-07-20] MEDS ORDERED: CYCLOBENZAPRINE 10 MG TABLET PO PRN (17:30)
[2021-07-20] MEDS ORDERED: OXYcodone 5 MG/5 ML ORAL.SOL UDC ONE (17:45)
[2021-07-20] MEDS ORDERED: RIVAROXABAN 20 MG TABLET PO ONE (18:00)
[2021-07-20] MEDS: PLEASE ENTER HEIGHT AND WEIGHT MC SCH ×3 (18:33→19:30)
[2021-07-20 20:06] VITALS: BP 146/82
[2021-07-20] MEDS: COLCHICINE 0.6 MG CAPSULE PO SCH (20:40)
[2021-07-20] MEDS: OXYcodone/APAP 7.5/325MG TABLET PO PRN (20:51)
[2021-07-21 00:02] VITALS: BP 127/76
[2021-07-21] MEDS: OXYcodone/APAP 7.5/325MG TABLET PO PRN ×2 (05:27→10:41)
[2021-07-21] MEDS ORDERED: RIVAROXABAN 20 MG TABLET PO SCH (08:00)
[2021-07-21 08:34] VITALS: BP 132/83
[2021-07-21] MEDS: COLCHICINE 0.6 MG CAPSULE PO SCH (08:36)
[2021-07-21] MEDS ORDERED: OMEPRAZOLE 20 MG CAPSULE.DR PO SCH (09:00)
[2021-07-21] MEDS ORDERED: COLC0.6C3 PO (10:17)
== END 2021-07-21 11:48 | disposition home or self-care (01) ==
LOC: CACL 10:33 → ORIP 17:24 → 5SO 17:58
PROVIDERS: ADMIT Internal Medicine Clinical Cardiac Electrophysiology; ATTEND Internal Medicine Clinical Cardiac Electrophysiology
DX: I48.0 Paroxysmal atrial fibrillation (principal); Z20.822 Contact with and (suspected) exposure to COVID-19; G47.30 Sleep apnea, unspecified; Z87.891 Personal history of nicotine dependence; Z79.899 Other long term (current) drug therapy
CPT/HCPCS: 36415; 71046; 80053; 85025; 85347; 85610; 85730; 87635; 93005; 93306; 93312; 93321; 93325; 93356; 93613; 93623; 93656; 93657; 93662; C1730; C1732; C1766; C1893; C1894; G0378; J0330; J1100; J1644; J2250; J2405; J2704; J3010; J3490

== ENCOUNTER 2021-08-05 05:13 | Emergency (ER) | payer OTHER ==
[~2021-08-05] VITALS: Ht 190.5 cm; Wt 122.5 kg
[2021-08-05 08:37] VITALS: BP 134/86
== END 2021-08-05 08:53 | disposition home or self-care (01) ==
LOC: ED 06:09
DX: I48.0 Paroxysmal atrial fibrillation (principal)
CPT/HCPCS: 92960; 93005; 96374; 99291; J2405

== ENCOUNTER 2021-08-05 14:36 | Emergency (ER) | payer OTHER ==
[~2021-08-05] VITALS: Ht 190.5 cm; Wt 122.0 kg
[~2021-08-05 14:36] MED LIST changes: -ACETAMINOPHEN 325 MG TABLET PO PRN; +COLC0.6C3 PO; +CYCL10TA2 PO; -EPHEDRINE 50 MG/ML, 1ML IVPush PRN; -FENTANYL PF 100 MCG/2ML IV PRN; -HYDROmorphone 1 MG/ML, 1ML INJ IVPush PRN; -LABETALOL 5MG/ML, 20ML IV PRN; -MEPERIDINE/PF 25MG/0.5ML IVPush PRN; +METO50TA82 PO; -ONDANSETRON 2MG/ML, 2ML IVPush PRN; -OXYcodone 5 MG/5 ML ORAL.SOL UDC PO PRN; -PROMETHAZINE 25 MG/ML, 1ML IVPush PRN; +TEST1.25 TP; -hydrALAzine 20 MG/ML, 1ML IV PRN
[2021-08-05] MEDS ORDERED: SODIUM CHLORIDE FLUSH 10ML SYR IVF ONE (15:00)
--- NOTE | 2021-08-05 15:08 | NUR ---
IV to left forearm, pt on monitor A fib rate 110. Pt informed that cards will be consulted re: POC. Pt and agree with this plan.
--- NOTE | 2021-08-05 15:45 | NUR ---
RECEIVED REPORT FROM LAURA REN. PT RESTING ON JOY. ISACN. HR BETWEEN 106-128 W/ LAUREL HR AT 111-115.
[2021-08-05 16:35] VITALS: BP 107/68
--- NOTE | 2021-08-05 16:36 | NUR ---
PT RESTING ON GURNEY. NADN. NORTHS. AWARE MD IS WAITING FOR CARDIOLOGY PAGE.
--- NOTE | 2021-08-05 17:03 | NUR ---
ERP DR. STUBBS AT BEDSIDE FOR RE-EVAL.
== END 2021-08-05 17:25 | disposition home or self-care (01) ==
LOC: ED 14:45
DX: I48.0 Paroxysmal atrial fibrillation (principal)
CPT/HCPCS: 93005; 99283